=== PATIENT | male | born 1950 | race Caucasian/White ===

== ENCOUNTER → 2016-12-24 | Outpatient (CLI) | payer BC ==
[~2016-12-24] MED LIST: LACRI-LUBE0.7 GM OPT OP; MEDROL4 MG/DOSE- PO; NO MEDICATIONS; VALTREX PO
--- NOTE | ~2016-12-24 | US128 ---
[id number] [address] [address] [id number] O MR#: [id number] Acc #: [id number] NAME: CHANELLE LITTLEJOHN : 1950 SEX: M STUDY DATE/TIME: 12/24/2016 11:09 UNIT: SG ROOM: STUDY DESCRIPTION: Thyroid Attending Physician: Sheryl Perez M.D. Referring Physician: Sheryl Perez M.D. Ordering Physician: Sheryl Perez M.D. Primary Care Physician: Sheryl Perez M.D. MEDICAL IMAGING REPORT This report is preliminary unless electronic signature is present. EXAM Thyroid ultrasound 12/24/2016 HISTORY Hypothyroidism with pain in neck area for 6 weeks. FINDINGS The right thyroid lobe measured 4.5 cm x 2 cm x 1.7 cm while the left lobe measured 4.4 cm x 1.5 cm x 1.4 cm. The isthmus measured 5 mm in the AP direction. Both thyroid lobes are homogeneous in echotexture and demonstrate no cystic or solid mass lesions. There are no masses extrinsic to the thyroid. Normal blood flow is seen throughout both thyroid lobes. IMPRESSION Negative thyroid ultrasound. Dictated by... Lenny Wall M.D. THIS IS AN ELECTRONICALLY VERIFIED REPORT Lenny Wall M.D. at 12/25/2016 8:05 AM [place] TD: 12/24/2016 14:13 JOB #: [id number] MEDICAL IMAGING REPORT Page 1 of 1
== END | disposition home or self-care (01) ==
LOC: SGUS 10:50
DX: E03.9 Hypothyroidism, unspecified (principal)
CPT/HCPCS: 76536